=== PATIENT | female | born 1985 | race Asian ===

== ENCOUNTER 2016-11-05 02:13 | Emergency (ER) | payer OTHER ==
[~2016-11-05] VITALS: Ht 168 cm; Wt 53.0 kg
[~2016-11-05 02:13] MED LIST: BACTRIM DS 8001 TAB PO; MOTRIN 600600 MG/TAB PO; PERCOCET 325 MG1 TA2 PO; PRENTAL 1 PLUS1 TAB PO; PYRIDIUM 100MG100 MG PO
[2016-11-05 02:15] VITALS: TEMP 98.2
[2016-11-05] MEDS ORDERED: ZANTAC 7575 MG PO (02:19)
[2016-11-05 04:38] VITALS: BP 101/81; PULSE 94
== END 2016-11-05 04:24 | disposition home or self-care (01) ==
LOC: COL.ER 02:13
DX: R11.2 Nausea with vomiting, unspecified (principal); R19.7 Diarrhea, unspecified

== ENCOUNTER → 2018-02-09 | Outpatient (CLI) | payer OTHER ==
[~2018-02-09] MED LIST changes: +ZANTAC 7575 MG PO
== END ==
LOC: MC.RAD 14:28
DX: N63.20 Unspecified lump in the left breast, unspecified quadrant (principal)